=== PATIENT | male | born 1985 | race Caucasian/White ===

== ENCOUNTER 2017-05-13 11:29 | Observation (INO) | payer MEDICAID, OTHER ==
[2017-05-13 16:35] VITALS: O2SAT 98
[2017-05-13 17:46] VITALS: BP 120/74; PULSE 69; RESP 20; TEMP 98.1
== END 2017-05-14 00:45 | disposition left against medical advice (07) ==
LOC: C.ER 11:29 → C.9E 16:37 → C.3T 17:33
PROVIDERS: ADMIT Hospitalist; ATTEND Hospitalist
DX: R11.10 Vomiting, unspecified (principal); D72.829 Elevated white blood cell count, unspecified
CPT/HCPCS: 71010; 74176; 80053; 81001; 82803; 83690; 85025; 87040; 96361; 96365; 96375; 96376; 99285; G0378; G0480; J0696; J2060; J2405; J2765; J7040